=== PATIENT | male | born 1995 | race Caucasian/White ===

== ENCOUNTER 2020-10-06 11:56 | Emergency (ER) | payer OTHER ==
[~2020-10-06] VITALS: Ht 167.6 cm; Wt 97.5 kg
== END 2020-10-06 13:21 | disposition home or self-care (01) ==
LOC: ER 11:56
DX: S61.330A Puncture wound without foreign body of right index finger with damage to nail, initial encounter (principal); W46.1XXA Contact with contaminated hypodermic needle, initial encounter; Y93.89 Activity, other specified; Y92.238 Other place in hospital as the place of occurrence of the external cause; Y99.8 Other external cause status